=== PATIENT | male | born 1975 | race African-American/Black ===

== ENCOUNTER 2021-03-12 10:28 | Emergency (ER) | payer OTHER ==
[2021-03-12 10:39] VITALS: BP 105/67; PULSE 57; TEMP 97.9; BMI 21.2
[2021-03-12] MEDS ORDERED: KETOROLAC TROMETHAMINE 60 MG/2 ML VIAL IM ONE (11:23)
[2021-03-12] MEDS ORDERED: METHOCARBAMOL 500 MG TABLET PO ONE (11:24)
[2021-03-12] MEDS ORDERED: LIDOCAINE 5% TOPICAL PATCH TP ONE (11:24)
[2021-03-12] MEDS ORDERED: METHOCARBAMOL 500 MG TABLET ONE ×2 (11:39→11:43)
[2021-03-12] MEDS ORDERED: KETOROLAC TROMETHAMINE 30 MG/1 ML VIAL ONE (11:39)
[2021-03-12] MEDS ORDERED: LIDOCAINE 5% TOPICAL PATCH ONE (11:39)
== END 2021-03-12 12:40 | disposition home or self-care (01) ==
LOC: JER 10:28
PROC: 3E0233Z Introduction of Anti-inflammatory into Muscle, Percutaneous Approach (ICD-10-PCS; principal; 2021-03-12)
DX: M54.5 Low back pain (principal)
CPT/HCPCS: 72100-TC-FY; 99284-25

== ENCOUNTER 2021-05-02 08:33 | Emergency (ER) | payer OTHER ==
[2021-05-02 08:39] VITALS: BP 148/93; PULSE 65; TEMP 98.4; BMI 18.4
[2021-05-02] MEDS ORDERED: DIPHTH,PERTUSS(ACELL),TET 0.5 ML DISP.SYRIN IM ONE ×2 (08:57→08:59)
[2021-05-02] MEDS ORDERED: NAPROXEN 500 MG TABLET PO ONE (08:58)
[2021-05-02] MEDS ORDERED: NAPROXEN 500 MG TABLET ONE (09:00)
== END 2021-05-02 09:14 | disposition home or self-care (01) ==
LOC: JER 08:33
PROC: 2W3CX1Z Immobilization of Right Lower Arm using Splint (ICD-10-PCS; principal; 2021-05-02)
PROC: 3E0234Z Introduction of Serum, Toxoid and Vaccine into Muscle, Percutaneous Approach (ICD-10-PCS; 2021-05-02)
DX: S61.011A Laceration without foreign body of right thumb without damage to nail, initial encounter (principal); G56.01 Carpal tunnel syndrome, right upper limb; W26.0XXA Contact with knife, initial encounter
CPT/HCPCS: 90715; 99284-25